=== PATIENT | male | born 1995 | race Caucasian/White ===

== ENCOUNTER 2023-08-14 20:33 | Emergency (ER) | payer SELFPAY ==
--- NOTE | 2023-08-14 20:37 | XRR_ITS ---
PROCEDURE INFORMATION: Exam: XR Right Foot Exam date and time: 08/14/2023 9:21 PM Age: 28 years old Clinical indication: Pain; Foot; Right; Additional info: Injury, PT fell over chair, RT foot pain/swelling/lac TECHNIQUE: Imaging protocol: Radiologic exam of the right foot. Views: 3 or more views. COMPARISON: No relevant prior studies available. FINDINGS: Bones/joints: No acute fracture or dislocation. No suspicious lytic or blastic osseous lesions. Soft tissues: Unremarkable. XR/XR foot RT min 3V* [id number] IMPRESSION: No acute bony abnormality. If symptoms persist, consider followup plain films in 5-7 days.
[2023-08-14 20:50] VITALS: BP 161/88; PULSE 87; RESP 15; TEMP 36.2; O2SAT 95; BMI 36.1
--- NOTE | 2023-08-14 22:06 | W.ED.EXTPRO ---
HPI - Extremity Problem General: Chief complaint: Extremity Injury, Lower Stated complaint: right foot injury Time Seen by Provider: 08/14/23 21:22 Source: patient Mode of arrival: ambulatory Limitations: no limitations History of Present Illness: Patient is a 28-year-old male presenting to the emergency department complaining of right foot injury onset tonight. Patient states he was getting out of the shower when he tripped and suffered the injury in the process. He has been ambulatory since though he notes that it has steadily worsened and swelling has increased to the ventral aspect. He does not report any ankle pain or any distal sensory changes. No prior surgeries or injuries to that foot. No other symptoms reported this time. He states he did put ice on initially and this has helped some. MD Complaint: extremity pain Onset (ago): hour(s) Pain Consistency: constant Location: right Radiation: none Relieving factors: cold therapy Exacerbating factors: weight bearing Associated symptoms: Deny chest pain, fever(s) or rash Review of Systems General: Reports: 10 or more systems reviewed and unremarkable except in HPI and below Const: Denies: fever(s) or chills Card: Denies: chest pain Resp: Denies: dyspnea or productive cough GI: Denies: abdominal pain, nausea, vomiting or diarrhea : Denies: flank pain Musc: Reports: extremity pain (Right foot) and extremity swelling (Right foot); Denies: neck pain, back pain, joint pain, joint swelling, joint redness, joint warmth, limited range of motion or muscle weakness Skin/Breast: Denies: rash Neuro: Denies: headache(s), numbness in extremities or weakness in extremities Physical Exam Const: COMMON NORMALS: no acute distress, patient oriented x3, no limitations, healthy appearing, alert and well nourished HENMT: COMMON NORMALS: normocephalic and atraumatic HEAD & SCALP: normocephalic and atraumatic Neck/C-Spine: COMMON NORMALS: full ROM, supple and no meningeal signs Resp: COMMON NORMALS: normal respiratory effort, No use of accessory muscles and clear to auscultation bilaterally AUSCULTATION: clear to auscultation bilaterally Cardio: COMMON NORMALS: regular rate and regular rhythm RATE: regular rate RHYTHM: regular rhythm Extremity: COMMON NORMALS: capillary refill normal, no joint enlargement and no clubbing, cyanosis or edema NARRATIVE EXTREMITY EXAM: There is mild amount of edema noted to the ventral aspect of patient's right foot. No sensory deficit noted and his distal neurovascular status is intact. Full range of motion at the ankle and rest of his ankle examination is normal. Antalgic gait is noted on entry into the emergency department. No obvious bruising or deformity. Neuro: COMMON NORMALS: patient oriented x3, moves all extremities, no focal motor deficits and no sensory deficits noted SENSORIUM/ORIENTATION: Yes alert MENINGEAL SIGNS: Yes no meningeal signs Skin: NARRATIVE SKIN EXAM: Multiple superficial lacerations noted to the ventral aspect of patient's right foot with no active bleeding. No gaping of the wounds. Course Vital Signs: Vital signs: Vital Signs Temperature 97.2 F L 08/14/23 20:50 Pulse Rate 87 08/14/23 20:50 Respiratory Rate 15 08/14/23 20:50 Blood Pressure 161/88 08/14/23 20:50 Pulse Oximetry 95 08/14/23 20:50 Oxygen Delivery Me thod Room Air 08/14/23 20:50 MDM - Extremity (Nontraumatic) Medical Decision Making Patient presented for right foot injury after getting out of shower. No obvious deformity examination there were some abrasions noted and some swelling noted to the ventral aspect. X-ray did not demonstrate any acute fractures. I did inform patient of this and that we will treat with RICE therapy however he is to follow-up with primary care for reevaluation and reimaging if his pain is persisting past 5 to 7 days. We will put Kyle wrap bandage prior to discharge and return precautions were given otherwise. Lab Data Radiology Impressions Foot X-Ray 08/14/23 20:37 IMPRESSION: No acute bony abnormality. If symptoms persist, consider followup plain films in 5-7 days. All radiology interpretation(s) finalized by discharge Discharge Plan Discharge Patient Disposition: Home Clinical Impression: Right foot sprain Qualifiers: Encounter type: initial encounter Qualified Code(s): S93.601A - Unspecified sprain of right foot, initial encounter Abrasion of foot, right Qualifiers: Encounter type: initial encounter Qualified Code(s): S90.811A - Abrasion, right foot, initial encounter Condition: Stable Discharge Orders: Discharge ED (Routine); Ordered 08/14/23 Ordered By: Johnson Sims Discharge Diet: Usual diet Discharge Activity: Increase activity as tolerated Patient Instructions: Foot Sprain (ED), Abrasion (ED) Activity Restrictions/Additional Instructions: Rest, ice, compression, and elevation. Tylenol and ibuprofen for pain relief. Gentle range of motion exercises as tolerated. Gently increase your weightbearing. Follow-up with primary care, specifically if your symptoms are persisting for the next 5 days, for potential reimaging. Return with any new or worsening. Coding Level of Care Code ED Outside [employer] for Wendi Ramirez
[2023-08-14 22:24] VITALS: BP 146/84; PULSE 76; RESP 16; TEMP 36.4; O2SAT 97
[2023-08-14 22:28] VITALS: BP 146/84; PULSE 76; RESP 16; TEMP 36.4; O2SAT 97
== END 2023-08-14 22:30 | disposition home or self-care (01) ==
PROVIDERS: Emergency Provider Physician Assistant
DX: S93.601A Unspecified sprain of right foot, initial encounter (principal); X58.XXXA Exposure to other specified factors, initial encounter
CPT/HCPCS: 73630; 99283